=== PATIENT | male | born 1945 | race Two or more races ===

== ENCOUNTER 2019-12-02 06:00 | Day surgery (SDC) | payer OTHER ==
[~2019-12-02 06:00] MED LIST: ARICEP PO; CLONAZEPA PO; CREST PO; GABAPEN PO; NAMENDA1 EACH PO; WELL PO
== END 2019-12-02 17:00 | disposition home or self-care (01) ==
LOC: CIR.AMB 06:00 → ADM 07:00 → CIR.AMB 10:00
PROVIDERS: ATTEND Urology
DX: C67.4 Malignant neoplasm of posterior wall of bladder (principal); N35.816 Other urethral stricture, male, overlapping sites; Z20.828 Contact with and (suspected) exposure to other viral communicable diseases